=== PATIENT | female | born 1990 | race American Indian/Alaskan Native ===

== ENCOUNTER 2021-12-02 18:40 | Emergency (ER) | payer MEDICAID | END 2021-12-02 22:45 | disposition home or self-care (01) | LOC: JD.ED 18:40 | DX: J02.9 Acute pharyngitis, unspecified (principal); Z90.49 Acquired absence of other specified parts of digestive tract | CPT/HCPCS: 87651-QW; 99283 ==

== ENCOUNTER 2023-11-19 11:07 | Emergency (ER) | payer MEDICAID, OTHER | END 2023-11-19 11:51 | disposition home or self-care (01) | LOC: JD.ED 11:07 | DX: K04.7 Periapical abscess without sinus (principal); F17.210 Nicotine dependence, cigarettes, uncomplicated; E66.9 Obesity, unspecified; Z79.82 Long term (current) use of aspirin; Z79.899 Other long term (current) drug therapy; Z88.5 Allergy status to narcotic agent | CPT/HCPCS: 99283 ==

== ENCOUNTER 2024-01-18 14:03 | Inpatient (IN) | payer SELFPAY ==
[~2024-01-18 14:03] MED LIST: Ondansetron 4 MG/2 ML SDV IVPUSH PRN; Oxytocin/0.9 % Sodium Chloride 30 UNIT/500 ML BAG IV SCH; Sodium Chloride 0.9% 10 ML Syringe FLUSH PRN; ceFAZolin 2 GM in Sodium Chloride 0.9% 100 ML IV ONE
[2024-01-18] MEDS ORDERED: Ondansetron 4 MG/2 ML SDV ONE (14:13)
[2024-01-18] MEDS ORDERED: Phenylephrine 1% 10 MG/ML SDV ONE (14:13)
[2024-01-18] MEDS ORDERED: Morphine PF 10 MG/10 ML SDV ONE (14:18)
[2024-01-18] MEDS: ceFAZolin 2 GM in Sodium Chloride 0.9% 100 ML IV ONE (14:28)
[2024-01-18] MEDS: Lactated Ringers 1,000 ML IV SCH (14:28)
[2024-01-18 14:31] LABS: BASOPHILS ABSOLUTE AUTO 0.1 K/mm3 (0.0-0.2); BASOPHILS PERCENT AUTO 0.6 % (0.0-1.0); EOSINOPHILS ABSOLUTE AUTO 0.1 K/mm3 (0.0-0.4); HEMATOCRIT 33.6 % (37.0-47.0); IMMATURE GRAN ABSOLUTE AUTO 0.12 K/mm3 (0.00-0.05); IMMATURE GRAN PERCENT AUTO 1.5 % (0.0-0.4); LYMPHOCYTES ABSOLUTE AUTO 1.7 K/mm3 (1.0-4.8); LYMPHOCYTES PERCENT AUTO 22.2 % (24.0-44.0); MEAN CORPUSCULAR HEMOGLOBIN 27.9 pg (28.0-32.0); MEAN CORPUSCULAR HGB CONC 33.9 g/dl (32.0-36.0); MEAN CORPUSCULAR VOLUME 82.4 fl (83.0-99.0); MONOCYTES ABSOLUTE AUTO 0.5 K/mm3 (0.0-0.8); MONOCYTES PERCENT AUTO 5.7 % (0.0-8.0); NEUTROPHILS ABSOLUTE AUTO 5.4 K/mm3 (1.8-7.7); PLATELET COUNT,PLT 239 K/mm3 (150-400); RED BLOOD CELL COUNT 4.08 M/mm3 (4.10-5.30); WHITE BLOOD CELL COUNT,WBC 7.85 K/mm3 (3.9-11.3)
[2024-01-18] MEDS: Citric Acid/Sodium Citrate Solution 30 ML Cup PO ONE (14:35)
[2024-01-18] MEDS: Metoclopramide 10 MG/2 ML SDV IVPUSH ONE (14:35)
[2024-01-18 14:36] LABS: HEMOGLOBIN 11.4 gm/dl (12.0-16.0)
[2024-01-18] MEDS ORDERED: Lidocaine 1% 5 ML VIAL ONE (15:21)
[2024-01-18] MEDS ORDERED: ceFAZolin 2 GM Vial ONE (15:30)
[2024-01-18] MEDS ORDERED: ePHEDrine 50 MG/ML SDV ONE (15:34)
[2024-01-18] MEDS ORDERED: diphenhydrAMINE 50 MG/ML SDV IVPUSH PRN ×2 (16:01→17:03)
[2024-01-18] MEDS ORDERED: Ondansetron 4 MG/2 ML SDV IVPUSH PRN (16:01)
[2024-01-18] MEDS ORDERED: Ketorolac 30 MG/ML SDV ONE (16:15)
[2024-01-18] MEDS ORDERED: Naloxone 0.4 MG/ML SDV IVPUSH PRN (17:03)
[2024-01-18] MEDS ORDERED: ePHEDrine 50 MG/ML SDV IVPUSH PRN (17:03)
[2024-01-18] MEDS: Acetaminophen 325 MG Tab PO SCH (17:36)
[2024-01-18] MEDS: Dextrose 5%-Lactated Ringers 1,000 ML IV SCH (18:35)
[2024-01-18] MEDS: Sodium Chloride 0.9% 10 ML Syringe FLUSH SCH (21:00)
[2024-01-18] MEDS: Ibuprofen 800 MG Tab PO SCH (21:07)
[2024-01-18] MEDS: BUPRENORPHINE 8 MG PO SCH (22:41)
[2024-01-18] MEDS: LAMOTRIGINE 150 MG PO SCH (22:41)
[2024-01-19 06:58] LABS: HEMATOCRIT 31.4 % (37.0-47.0); HEMOGLOBIN 10.4 gm/dl (12.0-16.0); MEAN CORPUSCULAR HEMOGLOBIN 27.5 pg (28.0-32.0); MEAN CORPUSCULAR HGB CONC 33.1 g/dl (32.0-36.0); MEAN CORPUSCULAR VOLUME 83.1 fl (83.0-99.0); MEAN PLATELET VOLUME 10.3 fl (9.4-12.3); PLATELET COUNT,PLT 221 K/mm3 (150-400); RED BLOOD CELL COUNT 3.78 M/mm3 (4.10-5.30); WHITE BLOOD CELL COUNT,WBC 8.28 K/mm3 (3.9-11.3)
[2024-01-19] MEDS: Prenatal Multivitamin with Calcium/Folic Acid/Iron Tab PO SCH (08:43)
[2024-01-19] MEDS ORDERED: lamoTRIgine 100 MG Tab PO SCH (09:00)
[2024-01-19] MEDS: oxyCODONE 5 MG Tab PO PRN (11:02)
[2024-01-19] MEDS: Docusate Sodium 100 MG Cap PO PRN (20:10)
[2024-01-20] MEDS: Acetaminophen 325 MG Tab PO SCH (09:37)
[2024-01-20] MEDS: Ibuprofen 800 MG Tab PO SCH (11:43)
[2024-01-20] MEDS: Measles, Mumps & Rubella Vaccine 0.5 ML SDV SUBCUT ONE (13:54)
== END 2024-01-20 14:51 | disposition home or self-care (01) | DRG 787 ==
LOC: JD.OB 14:03
PROVIDERS: ADMIT Obstetrics & Gynecology; ATTEND Obstetrics & Gynecology
PROC: 3E0234Z Introduction of Serum, Toxoid and Vaccine into Muscle, Percutaneous Approach (ICD-10-PCS; 2024-01-18)
PROC: 10D00Z1 Extraction of Products of Conception, Low, Open Approach (ICD-10-PCS; principal; 2024-01-18 15:00)
DX: O36.5930 Maternal care for other known or suspected poor fetal growth, third trimester, not applicable or unspecified (principal); F11.20 Opioid dependence, uncomplicated; O99.324 Drug use complicating childbirth; O34.211 Maternal care for low transverse scar from previous cesarean delivery; O32.1XX0 Maternal care for breech presentation, not applicable or unspecified; Z3A.37 37 weeks gestation of pregnancy; Z37.0 Single live birth; Z28.39 Other underimmunization status; Z88.5 Allergy status to narcotic agent; Z23 Encounter for immunization
CPT/HCPCS: 01961; 36415; 59025; 85025; 85027; 86592; 86850; 86870; 86900; 86901; 90471; 90707; A9270-GY; J0690; J1885; J2274; J2371; J2405; J2765; J3490; J7120; J7121

== ENCOUNTER 2024-01-27 13:02 | Emergency (ER) | payer SELFPAY ==
[2024-01-27 14:05] LABS: BASOPHILS ABSOLUTE AUTO 0.1 K/mm3 (0.0-0.2); BASOPHILS PERCENT AUTO 0.9 % (0.0-1.0); EOSINOPHILS ABSOLUTE AUTO 0.2 K/mm3 (0.0-0.4); EOSINOPHILS PERCENT AUTO 3.2 % (0.0-6.0); HEMATOCRIT 30.3 % (37.0-47.0); IMMATURE GRAN ABSOLUTE AUTO 0.02 K/mm3 (0.00-0.05); IMMATURE GRAN PERCENT AUTO 0.3 % (0.0-0.4); LYMPHOCYTES ABSOLUTE AUTO 1.7 K/mm3 (1.0-4.8); LYMPHOCYTES PERCENT AUTO 27.1 % (24.0-44.0); MEAN CORPUSCULAR HEMOGLOBIN 27.6 pg (28.0-32.0); MEAN CORPUSCULAR VOLUME 83.7 fl (83.0-99.0); MEAN PLATELET VOLUME 9.4 fl (9.4-12.3); MONOCYTES ABSOLUTE AUTO 0.5 K/mm3 (0.0-0.8); MONOCYTES PERCENT AUTO 7.3 % (0.0-8.0); NEUTROPHILS ABSOLUTE AUTO 3.9 K/mm3 (1.8-7.7); NEUTROPHILS PERCENT AUTO 61.2 % (41.0-71.0); PLATELET COUNT,PLT 307 K/mm3 (150-400); RED BLOOD CELL COUNT 3.62 M/mm3 (4.10-5.30); WHITE BLOOD CELL COUNT,WBC 6.34 K/mm3 (3.9-11.3)
== END 2024-01-27 15:02 | disposition home or self-care (01) ==
LOC: JD.ED 13:02
DX: L90.6 Striae atrophicae (principal); E66.9 Obesity, unspecified; Z88.5 Allergy status to narcotic agent; Z79.899 Other long term (current) drug therapy; Z68.33 Body mass index [BMI] 33.0-33.9, adult
CPT/HCPCS: 36415; 85025; 99283